=== PATIENT | female | born 1940 ===

== ENCOUNTER 2021-04-22 09:55 | Outpatient (RCR) | payer MEDICARE, SELFPAY | END 2021-04-22 23:59 | disposition home or self-care (01) | LOC: MR3 09:55 | PROVIDERS: Referring Provider Physical Medicine & Rehabilitation; Visit Provider Physical Medicine & Rehabilitation | DX: R26.81 Unsteadiness on feet (principal) | CPT/HCPCS: 97110; 97162 ==

== ENCOUNTER 2021-04-27 06:00 | Outpatient (RCR) | payer MEDICARE, SELFPAY | END 2021-05-23 23:59 | disposition home or self-care (01) | LOC: MR3 06:00 | PROVIDERS: Referring Provider Physical Medicine & Rehabilitation; Visit Provider Physical Medicine & Rehabilitation | DX: I62.00 Nontraumatic subdural hemorrhage, unspecified (principal) | CPT/HCPCS: 97110; 97112; 97116; 97166 ==

== ENCOUNTER 2021-05-24 06:00 | Outpatient (RCR) | payer MEDICARE, SELFPAY | END 2021-06-23 23:59 | disposition home or self-care (01) | LOC: MR3 06:00 | PROVIDERS: Referring Provider Physical Medicine & Rehabilitation; Visit Provider Physical Medicine & Rehabilitation | DX: R26.81 Unsteadiness on feet (principal) | CPT/HCPCS: 97110; 97112; 97116 ==

== ENCOUNTER 2021-06-24 06:00 | Outpatient (RCR) | payer MEDICARE, SELFPAY | END 2021-07-23 23:59 | disposition home or self-care (01) | LOC: MR3 06:00 | PROVIDERS: Referring Provider Physical Medicine & Rehabilitation; Visit Provider Physical Medicine & Rehabilitation | DX: S06.5X9A Traumatic subdural hemorrhage with loss of consciousness of unspecified duration, initial encounter (principal); W19.XXXA Unspecified fall, initial encounter; I10 Essential (primary) hypertension | CPT/HCPCS: 97110; 97112; 97116 ==